=== PATIENT | male | born 1980 | race Asian ===

== ENCOUNTER 2019-02-20 14:12 | Emergency (ER) | payer OTHER ==
[~2019-02-20] VITALS: Ht 165.1 cm; Wt 73.3 kg
[2019-02-20] MEDS ORDERED: diphenhydrAMINE 50 MG/ML VIAL IVP ONE (15:00)
[2019-02-20] MEDS ORDERED: IV NORMAL SALINE 1,000ML 1,000 ML IV ONE (15:00)
[2019-02-20] MEDS ORDERED: methylPREDNISolone SOD SUCC PF 125 MG/2 ML VIAL. IV ONE (15:00)
--- NOTE | 2019-02-20 15:15 | PHYS DOC ---
Past History Past Medical History: Other Additional Past Medical Histor: environmental allergies Past Surgical History: Appendectomy, Other Additional Past Surgical Histo: fissure removed Alcohol Use: Occasionally Drug Use: None Adult General Chief Complaint Chief Complaint: ALLERGIC REACTION HPI HPI 38-year-old male presents with allergic reaction. The patient gets allergy shots for viral allergies. He also carries an EpiPen in case he has a reaction to the shots. He has had reactions in the past, but never needed epi. The patient developed diffuse hives, warm ears, and some mild difficulty swallowing so he thought he should take his epi. He gave himself one epi injection. This was 2 hours prior to arrival. This is helped with his itching and he has no current throat symptoms. He continues to have hives on his trunk and bilateral upper extremities. His primary provider recommended that he come to the emergency room . [place] He denies difficulty breathing or shortness of breath. Review of Systems Review of Systems Constitutional: Denies fever or chills [] Eyes: Denies change in visual acuity, redness, or eye pain [] HENT: Denies nasal congestion or sore throat [] Respiratory: Denies cough or shortness of breath [] Cardiovascular: No additional information not addressed in HPI [] GI: Denies abdominal pain, nausea, vomiting, bloody stools or diarrhea [] : Denies dysuria or hematuria [] Musculoskeletal: Denies back pain or joint pain [] Integument: Diffuse hives[] Neurologic: Denies headache, focal weakness or sensory changes [] Endocrine: Denies polyuria or polydipsia [] All other systems were reviewed and found to be within normal limits, except as documented in this note. Current Medications Current Medications Current Medications Medications (Trade) Dose Ordered Sig/Darling Start Time Stop Time Status Last Admin Dose Admin Diphenhydramine HCl (Benadryl) 50 mg 1X ONCE 02/20/19 15:00 02/20/19 15:01 DC Methylprednisolone Sodium Succinate (SOLU-Medrol 125MG VIAL) 125 mg 1X ONCE 02/20/19 15:00 02/20/19 15:01 DC Sodium Chloride 1,000 ml @ 1,000 mls/hr 1X ONCE 02/20/19 15:00 02/20/19 15:59 Allergies Allergies Allergies Coded Allergies Type Severity Reaction Last Updated Verified Sulfa (Sulfonamide Antibiotics) Allergy Unknown 02/20/19 Yes Physical Exam Physical Exam Constitutional: Well developed, well nourished, no acute distress, non-toxic appearance. [] HENT: Normocephalic, atraumatic, bilateral external ears normal, oropharynx moist and without swelling, no oral exudates, nose normal. [] Eyes: PERRLA, EOMI, conjunctiva normal, no discharge. [] Neck: Normal range of motion, no tenderness, supple, no stridor. [] Cardiovascular:Heart rate regular rhythm, no murmur [] Lungs & Thorax: Bilateral breath sounds clear to auscultation [] Abdomen: Bowel sounds normal, soft, no tenderness, no masses, no pulsatile masses. [] Skin: Urticaria of the chest, back, bilateral upper extremities.[] Back: No tenderness, no CVA tenderness. [] Extremities: No tenderness, no cyanosis, no clubbing, ROM intact, no edema. [] Neurologic: Alert and oriented X 3, normal motor function, normal sensory function, no focal deficits noted. [] Psychologic: Affect normal, judgement normal, mood normal. [] Current Patient Data Vital Signs Vital Signs Date Time Temp Pulse Resp B/P (MAP) Pulse Ox O2 Delivery O2 Flow Rate FiO2 02/20/19 14:30 97.9 112 20 95 Room Air EKG EKG [] Radiology/Procedures Radiology/Procedures [] Course & Med Decision Making Course & Med Decision Making Pertinent Labs and Imaging studies reviewed. (See chart for details) Patient does not appear to be any acute distress. I will give him 125 Solu- Medrol, 50 mg of Benadryl, and a liter of normal saline. He does not require epinephrine at this time. Patient had no further difficulty in the emergency room. I believe he is safe to discharge to home. His labs are unremarkable except for an elevated white count of 15. He is stable for discharge at this time. [] Dragon Disclaimer Dragon Disclaimer This electronic medical record was generated, in whole or in part, using a voice recognition dictation system. Departure Departure: Impression: Primary Impression: Allergic reaction caused by a drug Disposition: 01 HOME, SELF-CARE Condition: IMPROVED Referrals: PCP,UNKNOWN (PCP) Patient Instructions: Drug Allergy, [id number] Problem Qualifiers Primary Impression: Allergic reaction caused by a drug Encounter type: initial encounter Qualified Codes: T78.40XA - Allergy, unspecified, initial encounter BOBBY AVITIA DO Feb 20, 2019 15:15
[2019-02-20 15:57] LABS: CALCIUM 8.8 mg/dL (8.5-10.1); CREATININE 1.2 mg/dL (0.7-1.3); GFR 68.1; POTASSIUM 4.1 mmol/L (3.5-5.1)
[2019-02-20 16:03] LABS: ALBUMIN 3.9 g/dL (3.4-5.0); BASO % 0 % (0-3); EOS % 0 % (0-3); HEMATOCRIT 48.8 % (39.0-53.0); LYMPH # 0.8 x10^3/uL (1.0-4.8); LYMPH % 5 % (24-48); MEAN CORPUSCULAR HEMOGLOBIN 29 pg (25-35); MEAN CORPUSCULAR HGB CONC 33 g/dL (31-37); MEAN CORPUSCULAR VOLUME 88 fL (79-100); MONO # 0.9 x10^3/uL (0.0-1.1); MONO % 6 % (0-9); NEUT # 14.1 x10^3uL (1.8-7.7); NEUT % 89 % (31-73); PLATELET COUNT 379 x10^3/uL (140-400); RED BLOOD COUNT 5.54 x10^6/uL (4.30-5.70); RED CELL DISTRIBUTION WIDTH 13.6 % (11.5-14.5); TOTAL BILIRUBIN 0.4 mg/dL (0.2-1.0); TOTAL PROTEIN 7.8 g/dL (6.4-8.2); WHITE BLOOD COUNT 15.9 x10^3/uL (4.0-11.0)
[2019-02-20 17:05] VITALS: BP 141/85
[2019-02-20 18:08] LABS: % BANDS 5 % (0-9); % LYMPHS 7 % (24-48); % MONOS 5 % (0-10); % SEGS 83 % (35-66); PLATELET CLUMP PRESENT; PLT ESTIMATE ADEQUATE (ADEQUATE)
== END 2019-02-20 17:05 | disposition home or self-care (01) ==
LOC: ER 14:12
DX: L50.9 Urticaria, unspecified (principal); T50.905A Adverse effect of unspecified drugs, medicaments and biological substances, initial encounter; Z88.2 Allergy status to sulfonamides; Y92.89 Other specified places as the place of occurrence of the external cause
CPT/HCPCS: 36415; 80053; 85007; 85025; 96374; 96375; 99284; J1200; J2930; J7030

== ENCOUNTER 2021-03-24 13:31 | Emergency (ER) | payer OTHER ==
[~2021-03-24] VITALS: Ht 165.1 cm; Wt 70.5 kg
[2021-03-24 14:43] VITALS: BP 127/82
[2021-03-24] MEDS ORDERED: BENZ-8 PO ×2 (15:43→16:19)
[2021-03-24] MEDS ORDERED: GUAI400T78 PO ×2 (15:43→16:19)
--- NOTE | 2021-03-24 15:43 | PHYS DOC ---
Past History Past Medical History: Other Additional Past Medical Histor: environmental allergies (WONG PENDLETON) Past Surgical History: Appendectomy, Other Additional Past Surgical Histo: fissure removed (WONG PENDLETON) Smoking: Non-smoker Alcohol Use: None Drug Use: None (WONG PENDLETON) General Adult EDM: Chief Complaint: SHORTNESS OF BREATH HPI: HPI: Patient is a 40 year old male who presents with congestion and shortness of breath. Patient reports his symptoms began on Tuesday (3 days ago), stating "I knew something was wrong this weekend." Today, he was completing a physical test for the , but was unable to continue secondary to his shortness of breath. He states that he got lightheaded. Patient reports a history of environmental allergies, but states that this feels different. He used his albuterol inhaler, but he did not feel that it is significantly open his airway. Patient has no other complaints. (WONG PENDLETON) Review of Systems: Review of Systems: ROS negative or noncontributory except as mentioned in HPI. (WONG PENDLETON) Allergies: Allergies: Allergies Coded Allergies Type Severity Reaction Last Updated Verified Sulfa (Sulfonamide Antibiotics) Allergy Unknown 02/20/19 Yes (WONG PENDLETON) Physical Exam: PE: Constitutional: Well developed, well nourished, no acute distress, non-toxic appearance. HENT: Normocephalic, atraumatic, bilateral external ears normal, nose normal. Eyes: EOMI, conjunctiva normal, no discharge. Neck: Normal range of motion, no stridor. Cardiovascular: Heart rate regular rhythm, no murmur. Lungs & Thorax: Bilateral breath sounds clear to auscultation, somewhat diminished in bases. Skin: Warm, dry, no erythema, no rash. Extremities: No tenderness, no cyanosis, no clubbing, ROM intact, no edema. Neurologic: Alert and oriented x4, steady and symmetric upright gait, no focal deficits noted. (WONG PENDLETON) Current Patient Data: Labs: Laboratory Tests Test 03/24/21 15:53 Influenza Type A (Rapid) Negative (NEGATIVE) Influenza Type B (Rapid) Negative (NEGATIVE) Vital Signs: Vital Signs Date Time Temp Pulse Resp B/P (MAP) Pulse Ox O2 Delivery O2 Flow Rate FiO2 2/8/22 14:43 98.1 97 16 127/82 (97) 97 Room Air (WONG PENDLETON) Radiology/Procedures: Radiology/Procedures: PROCEDURE: CHEST AP ONLY Exam: Chest one view INDICATION: Upper respiratory infection TECHNIQUE: Frontal view of the chest Comparisons: None FINDINGS: The cardiomediastinal silhouette and pulmonary vessels are within normal limits. The lung and pleural spaces are clear. IMPRESSION: No acute cardiopulmonary process. Electronically signed by: Hali Longo MD (03/24/2021 3:53 PM) WALTER (WONG PENDLETON) Heart Score: C/O Chest Pain: No (WONG PENDLETON) Course & Med Decision Making: Course & Med Decision Making Pertinent Labs and Imaging studies reviewed. (See chart for details) Patient refused Covid PCR testing. (WONG PENDLETON) Course & Med Decision Making I was the Attending physician on the above date of service of this patient. This patient was evaluated, examined, treated, and dispositioned from the emergency department by the mid-level practitioner. Although I was working at the time , no assistance was requested. Electronically signed, Michael Chase DO (MICHAEL CHASE DO) Ion Disclaimer: Ion Disclaimer: This electronic medical record was generated, in whole or in part, using a voice recognition dictation system. (WONG PENDLETON) Departure Departure: Impression: Primary Impression: Upper respiratory infection Qualified Codes: J06.9 - Acute upper respiratory infection, unspecified Disposition: HOME / SELF CARE / HOMELESS Condition: STABLE Referrals: [facility] [employer] (PCP) Patient Instructions: Upper Respiratory Infection, Adult, [id number] Additional Instructions: Follow the following supportive treatment measures: - Cool mist humidifier with plain water at bedside while you sleep - Mucinex (guaifenesin) per box instructions - Tessalon perles (benzonatate) for cough, especially at night before bed - Alternate ibuprofen and acetaminophen every four hours for body aches/fever/headache - Use the incentive spirometer 5 times per day with 10 deep breaths each time If antibiotics were prescribed, take them as directed. You have been tested for or diagnosed with COVID-19 infection. It is an infection caused by a new type of coronavirus. COVID-19 will cause cold-like or mild flu symptoms in most. It can cause more severe symptoms like problems breathing in some. There is no treatment for COVID-19. The body will clear the infection over time. Self-care will help to ease discomfort. Steps to Take: - Rest as needed. - Choose healthy foods including fruits and vegetables. Drink water throughout the day. - Get plenty of sleep each night. - If you smoke, try to quit. It may ease breathing. - Avoid alcohol. - Keep Others Healthy - The virus can spread to others. Droplets are released every time you sneeze or cough. The droplets can get into the mouth, nose, or eyes of people near you and lead to infection. To lower the chances of spreading COVID-19 to others: Stay at home until your doctor has said it is safe to leave. If you tested positive this will mean staying isolated until both of the following are true: - At least 10 days have passed since the start of illness. - You are free of fever for at least 72 hours without the use of medicine. During this time: - Avoid public areas, events, or transportation. Do not return to work or school until your doctor has said it is safe to do so. - Call ahead if you need to go to a medical center. Let them know you may have COVID-19. It will help them guide you where to go. They may also ask you to wear a facemask when you come to the office. - If you call for emergency medical services, let them know you may have COVID- 19. While at home: - Try to avoid close contact with others. Stay about 6 feet away. - If possible, spend most of your time in a separate room from others. - Use a face mask if you will be in close contact with others such as sharing a room or vehicle. - Have someone wipe down common surfaces in the home. Use household precipitator operator every day on areas like doorknobs, counters, or sinks. - Cough or sneeze into a tissue. Throw the tissue away right after use. If a tissue is not available, cough or sneeze into your elbow. - Wash your hands often. Wash them after sneezing or coughing. Use soap and water and wash or at least 20 seconds. Alcohol based hand machine fur cleaner can be used if soap and water is not available. - Do not prepare food for others. Avoid sharing personal items like forks, spoons, or toothbrushes. - Avoid close contact with pets while you are sick. There is no evidence of the virus passing to pets. This is a safety step until more is known about this virus. - Isolation can be frustrating. Social interaction can help. Keep in touch with friends and family through phone and tech options. You can still interact with others in your home, just keep a safe distance of about 6 feet. Follow-up: - Your doctors office will check in with you to see if there are any changes i n your health. - You may be asked to keep track of symptoms to share with them. They will also let you know when you are clear to be in public again. Contact your doctor if your recovery is not going as you expect. Get emergency care if you have problems such as: - Trouble breathing with oxygen saturation <90% - Nonstop chest pain or pressure - Changes in awareness, confusion, or problems waking - Lips or face have bluish color - Worsening of symptoms If you think you have an emergency, call for emergency medical services right away. As taken from [facility] Guaifenesin (GUAIFENESIN) 400 Mg Tablet 1 TAB PO TID for cough for 5 Days, #15 TAB 0 Refills Prov: WONG PENDLETON 03/24/21 Benzonatate (BENZONATATE) 100 Mg Capsule 1-2 CAP PO HS for cough, #20 CAP Prov: WONG PENDLETON 03/24/21 WONG PENDLETON Mar 24, 2021 15:43 MICHAEL CHASE DO Mar 25, 2021 06:17
--- NOTE | 2021-03-24 15:56 | RAD ---
Exam: Chest one view INDICATION: Upper respiratory infection TECHNIQUE: Frontal view of the chest Comparisons: None FINDINGS: The cardiomediastinal silhouette and pulmonary vessels are within normal limits. The lung and pleural spaces are clear. IMPRESSION: No acute cardiopulmonary process. Electronically signed by: Hali Longo MD (03/24/2021 3:53 PM) MANSI
[2021-03-24 17:03] LABS: INFLUENZA A PATIENT NEGATIVE (NEGATIVE); INFLUENZA B PATIENT NEGATIVE (NEGATIVE)
== END 2021-03-24 15:58 | disposition home or self-care (01) ==
LOC: ER 13:31
DX: J06.9 Acute upper respiratory infection, unspecified (principal); Z88.2 Allergy status to sulfonamides
CPT/HCPCS: 71045; 87428; 87804; 99284